=== PATIENT | male | born 1970 | race Asian ===

== ENCOUNTER 2018-11-30 15:10 | Observation (INO) | payer OTHER ==
[2018-11-30] MEDS ORDERED: LIDOCAINE 4%/MENTHOL 1% PATCH TD ONE (15:25)
[2018-11-30] MEDS ORDERED: LORazepam 2 MG/ML INJ IVP ONE (15:25)
[2018-11-30] MEDS ORDERED: KETOROLAC 15 MG/1 ML SDV IVP ONE (15:25)
--- NOTE | 2018-11-30 15:27 | EDPHY ---
H & P Stated Complaint: Pt injured back carrying a box @work 3hrs [employer]. denies paresthesia Time Seen by Provider: 11/30/18 15:26 HPI/ROS: CHIEF COMPLAINT: Left sacroiliac pain HISTORY OF PRESENT ILLNESS: The patient presents the ED with complaints of left sacroiliac pain that began earlier today when he was lifting a box. The patient denies any acute lower extremity numbness or weakness. He has a remote history of similar complaints in his back. He has no prior history of back surgery. The patient is brought in by paramedics. He received 100 mcg of fentanyl in route. The patient complains of isolated pain to the left sacroiliac joint. He did not sustain a fall. The patient is not anticoagulated. He has no history of cancer. REVIEW OF SYSTEMS: A comprehensive 10 point review of systems is otherwise negative aside from elements mentioned in the history of present illness. Source: Patient Exam Limitations: No limitations - Personal History Current Tetanus/Diphtheria Vaccine: Unsure - Medical/Surgical History Hx Asthma: No Hx Chronic Respiratory Disease: No Hx Diabetes: No Hx Cardiac Disease: No Hx Renal Disease: No Hx Cirrhosis: No Hx Alcoholism: No Hx HIV/AIDS: No Hx Splenectomy or Spleen Trauma: No Other PMH: abdominal Sx - Social History Smoking Status: Never smoked - Physical Exam Exam: General Appearance: Alert, no distress Eyes: Pupils equal and round no pallor or injection ENT, Mouth: Mucous membranes moist Respiratory: There are no retractions, lungs are clear to auscultation Cardiovascular: Regular rate and rhythm Gastrointestinal: Abdomen is soft and nontender, no masses, bowel sounds normal Neurological: 5/5 strength noted throughout the bilateral lower extremities, normal sensory exam. Skin: Warm and dry, no rashes Musculoskeletal: Tenderness to palpation left sacroiliac joint Extremities: symmetrical, full range of motion Constitutional: Initial Vital Signs Temperature (C) 36.8 C 11/30/18 15:16 Heart Rate 83 11/30/18 15:16 Respiratory Rate 18 11/30/18 15:16 Blood Pressure 129/91 H 11/30/18 15:16 O2 Sat (%) 92 11/30/18 15:16 O2 Delivery Mode Nasal Cannula O2 (L/minute) 2 Allergies/Adverse Reactions: No Known Allergies Allergy (Unverified 11/30/18 15:16) Home Medications: Medication Instructions Recorded Hydrocodone/APAP 5/325 [[place] 1 - 2 each PO Q6 PRN #20 tab 11/30/18 5/325] LORazepam [Ativan] 1 mg PO BID PRN #20 tab 11/30/18 Lidocaine [Lidoderm] 1 each TP AD PRN #15 adh..patch 11/30/18 predniSONE [prednisone 20mg (RX)] 3 tab PO DAILY #15 tab 11/30/18 Medical Decision Making ED Course/Re-evaluation: Patient was treated initially with a lidocaine patch, Ativan and Toradol. The patient is well-appearing. He is neurologically intact. Attempted to ambulate the patient he is still having severe left sacroiliac pain. The patient received a mg of IV Dilaudid. The patient was observed in the ED and continued to have ongoing back pain. I attempted ambulate the patient again at 6:00 p.m. He is still having significant discomfort. The patient has received Solu-Medrol. Plan will be for additional observation and admission to the hospital the patient is unable to ambulate after 4 hr. Re-evaluated the patient at 7:00 p.m.. He is feeling better would like to try to be discharged home. 7:30 p.m.: Patient attempted to ambulate and is still unable to ambulate secondary to muscle spasm in his back. The patient needs to be admitted to the hospital. Consultation is made with Dr. Sher from the hospitalist service. Differential Diagnosis: Differential diagnosis considered includes sacroiliitis, myofascial strain, lumbar disc herniation - Data Points Medications Given: Discontinued Medications Hydromorphone HCl (Dilaudid) 1 mg IVP EDNOW ONE Stop: 11/30/18 16:27 Last Admin: 11/30/18 16:29 Dose: 1 mg Ketorolac Tromethamine (Toradol) 15 mg IVP EDNOW ONE Stop: 11/30/18 15:26 Last Admin: 11/30/18 15:38 Dose: 15 mg Lorazepam (Ativan Injection) 1 mg IVP EDNOW ONE Stop: 11/30/18 15:26 Last Admin: 11/30/18 15:40 Dose: 1 mg Methylprednisolone Sodium Succinate (Solu-Medrol) 125 mg IVP EDNOW ONE Stop: 11/30/18 17:56 Last Admin: 11/30/18 18:01 Dose: 125 mg Miscellaneous Medication (Icy Hot Lidocaine/Menthol 4%/1% Patch) 1 patch TD EDNOW ONE Stop: 11/30/18 15:26 Last Admin: 11/30/18 15:41 Dose: 1 patch Departure - Departure Disposition: [facility] Acute Clinical Impression: Sacroiliitis Condition: Good Prescriptions: Hydrocodone/APAP 5/325 [[place] 5/325] 1 - 2 each PO Q6 PRN #20 tab PRN Reason: for pain Lidocaine [Lidoderm] 1 each TP AD PRN #15 adh..patch PRN Reason: Pain, Breakthrough LORazepam [Ativan] 1 mg PO BID PRN #20 tab PRN Reason: for muscle spasm predniSONE [prednisone 20mg (RX)] 3 tab PO DAILY #15 tab
[2018-11-30] MEDS ORDERED: HYDROmorphONE/DILAUDID 2 MG/ML INJ IVP ONE (16:26)
[2018-11-30] MEDS ORDERED: methylPREDNISolone SOD SUCC 125 MG/2 ML VIAL IVP ONE (17:55)
--- NOTE | 2018-11-30 19:47 | HOSPPROG ---
Hospitalist Progress Note Assessment/Plan: 48 yo male with Left Sacroiliac pain following lifting a heavy object while at work. Pain mgmt has been an issue. He has significant pain with movement. Pt seen and examined with our WINE AND SPIRITS CLERK I agree with her A&P per her H&P #Low back pain #Back Strain Plan: -Steroids (already given). Consider Medrol dose pack if clinically indicated in the a.m. -pain mgmt -MRI Exam: NAD AAOX3 NO EDEMA NORMAL WORK OF BREATHING BACK EXAM DEFERRED, (See WINE AND SPIRITS CLERK's note) Objective: Vital Signs Temp Pulse Resp BP Pulse Ox 36.8 C 82 16 116/73 95 11/30/18 19:00 11/30/18 19:00 11/30/18 19:00 11/30/18 19:00 11/30/18 19:00 ICD10 Worksheet Patient Problems: Problems Problem Status Onset Sacroiliitis Acute
[2018-11-30] MEDS ORDERED: ACETAMINOPHEN 325 MG TAB PO PRN (20:11)
[2018-11-30] MEDS ORDERED: ONDANSETRON 4 MG/2 ML VIAL IVP PRN (20:11)
[2018-11-30] MEDS ORDERED: ONDANSETRON DISINTEGRATING 4 MG TAB PO PRN (20:11)
[2018-11-30] MEDS ORDERED: traMADol 50 MG TAB PO PRN (20:13)
[2018-11-30] MEDS ORDERED: HYDROmorphONE/DILAUDID 1 MG/ML INJ IVP PRN (20:14)
[2018-11-30] MEDS ORDERED: KETOROLAC 30 MG/1 ML SDV IVP PRN (20:15)
--- NOTE | 2018-11-30 20:22 | PDGENHP ---
History and Physical - Chief Complaint Intractable back pain - History of Present Illness 48 y/o male w/no PMH presents w/ acute left lower lumbar/sacroiliac intractable pain after attempting to lift a heavy box at work earlier today. He does have a remote hx of back pain. Remained in the ED for multiple hours in attempt to manage pain and ambulate but was unsuccessful; continues to experience spasms and inability to move w/o severe discomfort. He denies saddle paraesthesia, difficulty urinating or defecating. No trauma, no falls. He denies CP, palpitations, nausea, vomiting. He is being admitted for further work-up, treatment and monitoring. History Information - Allergies/Home Medication List Allergies/Adverse Reactions: No Known Allergies Allergy (Unverified 11/30/18 15:16) Home Medications: Herbals/Supplements -Info Only 1 ea PO DAILY 11/30/18 [Last Taken Unknown] I have personally reviewed and updated: family history, medical history, social history, surgical history - Past Medical History no pertinent PMH - Surgical History Reports: no pertinent surgical hx - Family History Positive for: non-pertinent - Social History Smoking Status: Never smoked Alcohol Use: None Drug Use: None Additional social history: , at bedside. Lives in [place]. Works at a [employer] establishment. Speaks Mandarin. Review of Systems Review of Systems: ROS: 10pt was reviewed & negative except for what was stated in HPI & below Physical Exam Physical Exam: Lab data was reviewed. Case discussed w/admitting physician, Dr. Louie Sher. WBC: 6.41 H/H: 15.3/46.8 Plt count: 187 Na: BMP Pending K: Cl: Co2: BUN/Cr: Temp Pulse Resp BP Pulse Ox 36.8 C 82 16 116/73 95 11/30/18 19:00 11/30/18 19:00 11/30/18 19:00 11/30/18 19:00 11/30/18 19:00 Constitutional: uncomfortable (Appears sleepy however very easy to arouse) Eyes: PERRL, anicteric sclera, EOMI Ears, Nose, Mouth, Throat: moist mucous membranes, hearing normal, ears appear normal, no oral mucosal ulcers Cardiovascular: regular rate and rhythym, no murmur, rub, or gallop, No edema Peripheral Pulses: 2+: dorsalis-pedis (R) (+DF/PF), dorsalis-pedis (L) (+DF/PF) Respiratory: no respiratory distress, no rales or rhonchi, clear to auscultation Gastrointestinal: normoactive bowel sounds, soft, non-tender abdomen, no palpable masses Genitourinary: no bladder fullness, no bladder tenderness Skin: warm, normal color, other (Noted cupping parker to left side of back performed by his 2 days ago) Musculoskeletal: pain with ROM (Severe pain w/straight leg lifts, movement causes spasms) Neurologic: AAOx3, sensation intact bilaterally, CN II-XII Intact Psychiatric: interacting appropriately, not anxious, not encephalopathic, thought process linear Lab Data & Imaging Review 11/30/18 15:50 11/30/18 15:50 Assessment & Plan Assessment: 48 y/o male presenting w/intractable back pain after attempting to lift a heavy box at work, subsequently enduring severe pain to his left lower lumbar/ sacroiliac region. He does have a remote hx of back pain. His vital signs are : BP 116/73, HR 82, Resp 16, Temp 36.8, 95% RA #Intractable back pain -Received multiple medications through EMS and ED including the following: Fentanyl, Dilaudid, Toradol, Lidocaine patch (currently applied), Ativan, and Solu-medrol. -Cont pain management PO/IVP PRN -MRI w/o contrast lumbar/pelvis either tonight or in AM -PT/OT to evaluate and treat -Ice/hot packs PRN -Would consider Medrol dose pack in AM Diet: Regular Code: Full VTE ppx: SCDs Dispo: Admit to obs
[2018-11-30] MEDS: PATCH REMOVAL 1 EA PATCH TD SCH (21:00)
[2018-11-30] MEDS: oxyCODONE IR 5 MG TAB PO PRN (21:13)
[2018-12-01] MEDS ORDERED: DIAZEPAM 5 MG TAB PO PRN (01:04)
[2018-12-01] MEDS: oxyCODONE IR 5 MG TAB PO PRN ×3 (01:23→12:18)
--- NOTE | 2018-12-01 10:26 | HOSPPROG ---
Hospitalist Progress Note Assessment/Plan: Patient is a 48 y/o male presenting w/intractable back pain after attempting to lift a heavy box at work. First encounter, chart reviewed. #Intractable back pain -reviewed the images with Radiology. -MRI shows left L4-5 posterior lateral disc herniation which is compressing the left 5th nerve root -nursing staff has had the patient has been able to get out of bed or walk due to the pain -added a Medrol Dosepak as well as pdaryl Guerrero -spoke with neurosurgical team, they will see the patient today -Toradol and narcotics have not helped with his pain overall. The patient said it may be slightly better. # plan. Will see if the patient is able to walk. At this time would be difficult to discharge because he is unable to get out of bed. Will see the Medrol Dosepak helps him. Appreciate neuro surgery seeing him. Subjective: Ze is c/o lumbar back pain, not radiating, no incontinence of urine or stool. Objective: Vital Signs Temp Pulse Resp BP Pulse Ox 36.6 C 76 16 100/66 93 12/01/18 07:32 12/01/18 07:32 12/01/18 07:32 12/01/18 07:32 12/01/18 07:32 11/30/18 12/01/18 12/02/18 05:59 05:59 05:59 Intake Total 450 Output Total 1350 Balance -900 - Physical Exam Constitutional: other (thin) Eyes: PERRL Ears, Nose, Mouth, Throat: hearing normal Cardiovascular: regular rate and rhythym Respiratory: no respiratory distress Skin: warm Musculoskeletal: other (is lying flat on the bed, doesn't want to move) Psychiatric: interacting appropriately ICD10 Worksheet Patient Problems: Problems Problem Status Onset Sacroiliitis Acute
[2018-12-01] MEDS ORDERED: METHOCARBAMOL 750 MG TAB PO PRN (13:12)
[2018-12-01] MEDS: methylPREDNISolone 4 MG TAB PO SCH ×4 (14:03→21:56)
--- NOTE | 2018-12-01 15:20 | GCON ---
[f rep st] CONSULTATION HISTORY OF PRESENT ILLNESS: The patient is a 48-year-old male who presented to the hospital due to a cute back pain. His symptoms began yesterday and progressed over the day. He denies any lower extre mity pain, numbness, tingling, or weakness. No loss of bowel or bladder control. He admits to pain at the left lumbar paraspinal region that is made worse with activity. He has had severe back pain o nce before over 10 years ago. At that time, his pain resolved with rest and time. PAST MEDICAL HISTORY: Denies. PAST SURGICAL HISTORY: Abdominal surgery. ALLERGIES: No known drug allergies. CURRENT HOME MEDICATIONS: Denies. SOCIAL HISTORY: Patient denies alcohol, tobacco, and recreational drug use. FAMILY HISTORY: No pertinent neurosurgical family history. REVIEW OF SYSTEMS: Negative, except for what was mentioned in the HPI. PHYSICAL EXAM: GENERAL: The patient was seen and examined and appears to be in no apparent distress . Mood and affect are appropriate. Alert, oriented. VITAL SIGNS: Blood pressure 103/64, heart rat e 73, respirations of 16, breathing 93% on room air, temperature 36.6. HEENT: Extraocular movements are intact. Pupils are equal and reactive. Facial expression is symmetrical. Tongue is midline wi th protrusion. Hearing is grossly intact. Speech is fluent without dysarthria. MUSCULOSKELETAL: M uscle strength is well preserved in his upper and lower extremities at a 5/5, and sensation is intact to light touch. Nontender to palpation over the SI joints bilaterally. Tender at the left lumbar p araspinal region. RESULTS: White count 6.41, hemoglobin 15.3, hematocrit 46.8, platelet count 187. Sodium 136, potass ium 3.6, chloride 98, bicarb 24, BUN 12, creatinine 0.6, glucose 143. MRI of the lumbar spine: Left L4-5 posterolateral disk herniation compressing the left L5 nerve root and the ventral lateral recess. No compression fracture or bone lesion. ASSESSMENT AND PLAN: In summary, the patient is a 48-year-old male with back pain for 1 day. His MR I of the lumbar spine was reviewed, and he has a left L4-5 disk herniation. His pain, though, appear s to be more musculoskeletal in nature. Therefore, we recommend continuing with conservative treatme nt. He does not require any surgical intervention at this time. Recommend physical therapy, anti-in flammatories, and he is going to be started on a steroid pack. We will re-evaluate the patient tomor morning to see if his back pain has improved. Treatment plan was discussed with Dr. Marte, who also will be seeing the patient later. /[id number]/MODL
--- NOTE | 2018-12-01 16:17 | ASMTCMCOM ---
CM Note CM Note Notes: CM spoke with hospitalist, pt's Li and with pt's RN as pt was in MRI. PT has evaluated and cleared, OT unable to see today. Pt admitted for back pain related to lifting boxes at work. Patient will likely discharge home independently, okay with this plan. CM available should needs arise. D/C Plan: Independent Date Signed: 12/01/2018 04:17 PM Electronically Signed By:Lizeth Nolasco RN
[2018-12-01] MEDS: PATCH REMOVAL 1 EA PATCH TD SCH (21:56)
[2018-12-02] MEDS ORDERED: methylPREDNISolone 4 MG TAB PO SCH ×2 (07:30→21:00)
--- NOTE | 2018-12-02 11:04 | HOSPPROG ---
Hospitalist Progress Note Assessment/Plan: Patient is a 48 y/o male presenting w/intractable back pain after attempting to lift a heavy box at work. #Intractable back pain -reviewed the images with Radiology. -MRI shows left L4-5 posterior lateral disc herniation which is compressing the left 5th nerve root -pain is much better w the Medrol dose pack *plan: met with the patient and his along with the Mandarin supervisor facepiece line, he feels much better and is ready to go home. Subjective: Ze is feeling better. No complaints. Objective: Vital Signs Temp Pulse Resp BP Pulse Ox 36.6 C 78 16 103/60 96 12/02/18 07:29 12/02/18 07:29 12/02/18 07:29 12/02/18 07:29 12/02/18 07:29 12/01/18 12/02/18 12/03/18 05:59 05:59 05:59 Intake Total 450 2150 500 Output Total 1350 1950 600 Balance -900 200 -100 - Physical Exam Constitutional: no apparent distress, appears nourished, other (thin) Eyes: PERRL Ears, Nose, Mouth, Throat: hearing normal Respiratory: no respiratory distress Skin: warm Musculoskeletal: muscular tenderness Neurologic: AAOx3 Psychiatric: interacting appropriately ICD10 Worksheet Patient Problems: Problems Problem Status Onset Sacroiliitis Acute
[2018-12-02 11:19] VITALS: BP 98/67
--- NOTE | 2018-12-02 12:43 | GDS ---
[f rep st] DISCHARGE SUMMARY DISCHARGE DIAGNOSIS: Acute back pain that was intractable. CONSULTATION: Anna Zuniga, physician trust manager assistant with neurosurgical services. Briefly, the patient is a very nice 48-year-old gentleman who presented to the hospital due to acute back pain. His symptoms progressed throughout the day. He denies any lower extremity pain, numbness, tingling, weakness. He has had severe back pain in the past. He had an MRI of the spine, which showed a left L4-L5 posterolateral disk herniation compressing the left 5th nerve root in the ventral lateral recess. He has no compression fracture. He improved with the initiation of a Medrol dose pack. He will be discharged home and follow up with his primary care provider. In addition, his care was discussed via a [place] foreign language interpreter because that is his primary language. He is to return to the ER if he is incontinent of stool or urine. DISCHARGE CONDITION: Stable. Blood pressure is 98/67, heart rate of 85, respiratory rate is 16, O2 sats on room air 93%, temperature 36.6 Celsius. MEDICATIONS AT DISCHARGE: Please see the EMR. DISCHARGE INSTRUCTIONS: To follow up with his primary care provider. If he has any fever, chills, or worsening back pain, to return to the ER. /[id number]/MODL MTDD
[2018-12-03] MEDS ORDERED: methylPREDNISolone 4 MG TAB PO SCH (07:30)
[2018-12-04] MEDS ORDERED: methylPREDNISolone 4 MG TAB PO SCH (07:30)
[2018-12-05] MEDS ORDERED: methylPREDNISolone 4 MG TAB PO SCH (07:30)
[2018-12-06] MEDS ORDERED: methylPREDNISolone 4 MG TAB PO SCH (07:30)
== END 2018-12-02 13:08 | disposition home or self-care (01) ==
LOC: F3N 20:34
PROVIDERS: ADMIT Family Medicine; ATTEND Internal Medicine
DX: S33.5XXA Sprain of ligaments of lumbar spine, initial encounter (principal); X50.0XXA Overexertion from strenuous movement or load, initial encounter; Y93.G9 Activity, other involving cooking and grilling; Y99.0 Civilian activity done for income or pay; M51.26 Other intervertebral disc displacement, lumbar region
CPT/HCPCS: 72148; 72195; 96374; 96375; 97116; 97161; 97165; 99285; G0378; J1170; J1885; J2060; J2930